=== PATIENT | male | born 1970 | race Caucasian/White ===

== ENCOUNTER → 2016-07-21 | Outpatient (CLI) | payer OTHER ==
[~2016-07-21] MED LIST: GADOBUTROL 7.5 MMOL/7.5 ML VIAL INT ART ONE; IOHEXOL 300 MG/ML 50 ML VIAL. INT ART ONE; LIDOCAINE 1% Multi-Dose 20 ML VIAL. ID ONE
--- NOTE | 2016-07-21 15:38 | KCIC ---
PROCEDURE MR arthrogram of the left shoulder HISTORY Left shoulder pain for 2 years. No known injury. TECHNIQUE Intra-articular contrast injected prior to the scan, and reported separately. The standard 4 plane sequences were obtained including ABER positioning. COMPARISON None FINDINGS Acromioclavicular joint is intact. No evidence of rotator cuff tear. No significant fluid or contrast in the subdeltoid bursa. No evidence of labral tear. No paralabral cyst. No acute articular cartilage defect. Note is made of anterosuperior labral deficiency and a thick cord-like middle glenohumeral ligament, compatible with a [place] complex, a normal variant. No evidence of HAGL lesion. Biceps tendon intact. No bone lesion or acute fracture. No acute soft tissue injury. IMPRESSION No evidence of labral tear or other internal derangement. Electronically signed by: Jon Blanco MD (July 21, 2016 15:36:08)
--- NOTE | 2016-07-21 15:38 | KCIC ---
PROCEDURE: Left shoulder injection using fluoroscopic guidance, prior to MR. HISTORY: Shoulder pain. TECHNIQUE: The procedure was explained to the patient as were potential risks, including among others infection, bleeding or allergic reaction. All questions were answered. Informed written and verbal consent was obtained. The shoulder was prepped and draped in the usual sterile manner. Following administration of local anesthetic, a 22-gauge needle was advanced into the anterior shoulder. Following negative aspiration, 12 cc of a solution of 5cc Omnipaque-300 contrast, 5 cc 1% lidocaine, 10 cc normal saline, and 0.1 cc gadolinium was injected without difficulty. The needle was removed. There was good hemostasis at the injection site. The patient left in stable condition without immediate complication. The patient was given postprocedural instructions, and instructed to contact us or the ER if there are any complications. A single spot image is obtained. FLUOROSCOPY TIME: 21 seconds Electronically signed by: Jon Blanco MD (July 21, 2016 15:36:55)
== END | disposition home or self-care (01) ==
LOC: KCIC 13:29
PROVIDERS: ATTEND Physician Assistant
DX: M25.512 Pain in left shoulder (principal)
CPT/HCPCS: 73040; 73222; Q9967; A9585

== ENCOUNTER → 2018-12-28 | Outpatient (CLI) | payer OTHER ==
[~2018-12-28] MED LIST changes: +0.9 % SODIUM CHLORIDE 10 ML DISP.SYRIN. ID ONE; -GADOBUTROL 7.5 MMOL/7.5 ML VIAL INT ART ONE; +GADOTERATE 5 MMOL/10ML VIAL. INT ART ONE
--- NOTE | 2018-12-30 22:52 | KCIC ---
STUDY: MRI arthrogram of the left shoulder INDICATION: Left shoulder pain. Prior surgery. Sensation of instability. COMPARISON: 07/21/2016 TECHNIQUE: Multiplanar MR imaging of the left shoulder performed after the intra-articular injection of contrast material. The injection portion of the procedure is detailed in a separate report. FINDINGS: AC joint: Mild AC joint arthrosis. No fluid distention of the subacromial subdeltoid bursa. Rotator cuff: The rotator cuff is intact and without significant tendinosis. Muscular bulk is maintained. Labrum: Intact. Long head biceps tendon: Relative to the comparison exam, the intra-articular portion of the long head biceps tendon, particularly as it approaches the bicipital groove, has a slightly diminished caliber. Cartilage: Intact. Bones: No acute fracture. Miscellaneous: No axillary adenopathy. Impression: 1. Intact rotator cuff and labrum. 2. Relative to the 2017 comparison, the intra-articular long head biceps tendon as it approaches the groove entrance is mildly decreased in caliber but is normal in signal. This could potentially be related to low-grade partial tearing. 3. Very mild AC joint arthrosis. Electronically signed by: FLOR MARTÍNEZ MD (12/30/2018 10:49 PM) [facility] [place]
--- NOTE | 2018-12-30 22:53 | KCIC ---
Study: Fluoroscopically guided arthrogram of the left shoulder joint for MRI Indication: Left shoulder pain. Contrast: Approximately 4 cc Omnipaque 300 Technique: A timeout was performed prior to beginning the procedure in order to confirm patient identity and laterality of the injection. The risks, benefits and alternatives of the procedure were discussed. Utilizing sterile technique, fluoroscopic guidance and local anesthesia with 1% lidocaine, the left shoulder joint was accessed utilizing a 22-gauge, 3.5" spinal needle. Confirmation of needle position was obtained with a small amount of radiopaque contrast. Subsequently, approximately 12 cc of a mixture containing 5 cc lidocaine, 15 cc saline and 0.1 cc Dotarem was injected. There were no immediate post procedure complications. Fluoroscopy time: 19 seconds Number of images obtained: 1 Impression: Technically successful fluoroscopic guided arthrogram of the left shoulder joint without immediate postprocedure complication. Electronically signed by: FLOR MARTÍNEZ MD (12/30/2018 10:50 PM) [facility] – [place]
== END | disposition home or self-care (01) ==
LOC: KCIC 12:42
PROVIDERS: ATTEND Family Medicine
DX: M19.012 Primary osteoarthritis, left shoulder (principal)
CPT/HCPCS: 73040; 73222; A9575; Q9967